=== PATIENT | male | born 2005 | race African-American/Black ===

== ENCOUNTER 2023-05-07 05:07 | Emergency (ER) | payer OTHER, SELFPAY ==
[2023-05-07 06:12] LABS: Bilirubin Neg (Negative); Blood, Urine Negative (Negative); Glucose, Urine (Dipstick) Normal (Negative); Ketone, Urine 5 mg/dL (Negative); Leukocyte Negative (Negative); Nitrite Negative (Negative); Protein, Urine (Dipstick) 30 mg/dl (Neg-Trace); Specific Gravity, Urine 1.025 (1.005-1.030)
[2023-05-07 06:40] LABS: Clarity Clear (Clear)
[2023-05-07 06:42] LABS: CAUTI Indications for Culture Pelvic or flank pain; RBC/HPF 0-3 HPF (0-3); Squamous Epithelial None Seen HPF (0-3); WBC/HPF 0-3 HPF (0-3)
[2023-05-07 06:43] LABS: Bacteria/HPF Rare-Few HPF (None Seen); Mucous/LPF 1+ LPF (<2+); Sperm/HPF 1+ HPF (None Seen)
[2023-05-07 06:44] LABS: Urine Culture Reflex No No
== END 2023-05-07 06:46 | disposition home or self-care (01) ==
LOC: CSHERS 05:07
DX: R10.30 Lower abdominal pain, unspecified (principal); R11.2 Nausea with vomiting, unspecified; J45.909 Unspecified asthma, uncomplicated; F17.210 Nicotine dependence, cigarettes, uncomplicated
CPT/HCPCS: 81001; 99284